=== PATIENT | female | born 1950 | race Caucasian/White ===

== ENCOUNTER 2018-04-21 14:46 | Day surgery (SDC) | payer BC ==
[~2018-04-21] VITALS: Ht 154.9 cm; Wt 133.3 kg
[2018-04-21 16:02] VITALS: BP 149/72; PULSE 89; TEMP 98
[2018-04-21] MEDS ORDERED: XANAX .25M0.25 MG/TA PO (16:06)
[2018-04-21] MEDS ORDERED: PROTONIX 40MG T40 MG PO (16:07)
[2018-04-21] MEDS ORDERED: LIPITOR20 MG PO (16:08)
[2018-04-21] MEDS ORDERED: PRINIVIL10 MG PO (16:08)
[2018-04-21] MEDS ORDERED: CYMBALTA 60MG60 MG PO (16:08)
[2018-04-21] MEDS ORDERED: SINGULAIR 110 MG/TAB PO (16:09)
[2018-04-21] MEDS ORDERED: ACTOS 45MG45 MG/TAB PO (16:09)
[2018-04-21] MEDS ORDERED: ARICEPT10 MG PO (16:09)
[2018-04-21] MEDS ORDERED: NAMENDA XR 28MG PO (16:09)
[2018-04-21] MEDS ORDERED: LASIX 80MG TABL80 MG PO (16:10)
[2018-04-21] MEDS ORDERED: CUTIVATE TOP (16:10)
[2018-04-21] MEDS ORDERED: [UNRECOGNIZED DRUG - OTHER] TOP (16:10)
[2018-04-21] MEDS ORDERED: BUSPAR 30MG30 MG/TAB PO (16:10)
[2018-04-21] MEDS ORDERED: PROAIR HFA0.09 MG/AC IH (16:11)
[2018-04-21] MEDS ORDERED: 00186-0370-20 IH (16:11)
[2018-04-21 17:25] VITALS: BP 148/84; PULSE 97
[2018-04-21 17:40] VITALS: BP 162/95; PULSE 89
[2018-04-21 17:55] VITALS: BP 163/74; PULSE 96
== END 2018-04-21 18:13 | disposition home or self-care (01) ==
LOC: SDCO 14:46
DX: K52.9 Noninfective gastroenteritis and colitis, unspecified (principal); K57.30 Diverticulosis of large intestine without perforation or abscess without bleeding; K92.1 Melena; K64.1 Second degree hemorrhoids; K21.0 Gastro-esophageal reflux disease with esophagitis; K44.9 Diaphragmatic hernia without obstruction or gangrene; F32.9 Major depressive disorder, single episode, unspecified; F41.9 Anxiety disorder, unspecified; J44.9 Chronic obstructive pulmonary disease, unspecified; K59.09 Other constipation
CPT/HCPCS: J2250; J3010; J7030

== ENCOUNTER 2018-09-23 14:49 | Emergency (ER) | payer BC ==
[~2018-09-23] VITALS: Ht 165.1 cm; Wt 127.3 kg
[~2018-09-23 14:49] MED LIST: 00186-0370-20 IH; ACTOS 45MG45 MG/TAB PO; ARICEPT10 MG PO; ASPIRIN E.C. 8181 MG PO; BUSPAR 30MG30 MG/TAB PO; CUTIVATE TOP; CUTIVATE0.05% TOP; CYMBALTA 60MG60 MG PO; LASIX 80MG TABL80 MG PO; LIPITOR20 MG PO; NAMENDA XR 28MG PO; PRINIVIL10 MG PO; PROAIR HFA0.09 MG/AC IH; PROTONIX 40MG T40 MG PO; RT SPIRIVA18 MCG IH; SINGULAIR 110 MG/TAB PO; XANAX .25M0.25 MG/TA PO; [UNRECOGNIZED DRUG - OTHER] TOP
[2018-09-23 15:01] VITALS: TEMP 97.5
[2018-09-23] MEDS ORDERED: NORCO 325 MG-51 TAB PO (18:50)
[2018-09-23] MEDS ORDERED: FLEXERIL 1010 MG/TAB PO (18:50)
[2018-09-23] MEDS ORDERED: AMOXICILLIN 8751 TAB PO (18:50)
[2018-09-23 19:33] VITALS: BP 135/66; PULSE 77
== END 2018-09-23 20:00 | disposition home or self-care (01) ==
LOC: COL.ER 14:49
DX: S00.83XA Contusion of other part of head, initial encounter (principal); S20.211A Contusion of right front wall of thorax, initial encounter; S20.212A Contusion of left front wall of thorax, initial encounter; K11.20 Sialoadenitis, unspecified; E11.9 Type 2 diabetes mellitus without complications; J45.909 Unspecified asthma, uncomplicated; Z79.82 Long term (current) use of aspirin; Z79.51 Long term (current) use of inhaled steroids; Z79.84 Long term (current) use of oral hypoglycemic drugs; W01.0XXA Fall on same level from slipping, tripping and stumbling without subsequent striking against object, initial encounter; Y92.511 Restaurant or cafe as the place of occurrence of the external cause
CPT/HCPCS: A9284; J2060; J2270